=== PATIENT | female | born 1990 | race Caucasian/White ===

== ENCOUNTER 2018-07-31 17:38 | Inpatient (IN) | payer OTHER ==
[2018-07-31] MEDS ORDERED: NACL 0.9% 3 ML SYG IV (18:30)
[2018-07-31] MEDS: ONDANSETRON 4 MG INJ IV (19:41)
[2018-07-31] MEDS: SOD CHLORIDE 0.9% 1,000 ML IV (19:41)
[2018-07-31] MEDS: morphine 2 MG INJ IV (19:41)
[2018-07-31] MEDS: CEFEPIME 1GM/50 ML (PMX) 50 ML IV (20:21)
[2018-07-31] MEDS: ACETAMINOPHEN 325 MG TAB PO (20:48)
[2018-07-31] MEDS ORDERED: AL HYDROX/MG HYDROX/SIMETH 30 ML CUP PO (22:00)
[2018-07-31] MEDS: HYDROCODONE/APAP (5/325) TAB PO (22:33)
[2018-07-31 22:46] LABS: ADD UMIC YES; UR ASCORBIC ACID NEGATIVE (NEGATIVE); UR BACTERIA FEW /HPF (NONE SEEN); UR BILIRUBIN (Dip) NEGATIVE (NEGATIVE); UR BLOOD (Dip) 3+ mg/dL (NEGATIVE); UR CLARITY CLEAR (CLEAR); UR COLOR YELLOW (YELLOW); UR GLUCOSE (Dip) NEGATIVE (NEGATIVE); UR KETONES (Dip) NEGATIVE (NEGATIVE); UR LEUKOCYTE ESTERASE (Dip) TRACE Leu/ul (NEGATIVE); UR NITRITE (Dip) NEGATIVE (NEGATIVE); UR RBC 42 /HPF (0-5); UR SPECIFIC GRAVITY (Dip) 1.006 (1.003-1.030); UR SQUAMOUS EPITHELIAL CELL FEW /HPF (FEW); UR TOTAL PROTEIN (Dip) NEGATIVE (NEGATIVE); UR UROBILINOGEN (Dip) NEGATIVE (NEGATIVE); UR WBC 12 /HPF (0-5)
[2018-07-31 23:00] LABS: TROPONIN-I < 0.012 ng/ml (0.000-0.120)
[2018-08-01] MEDS: morphine 2 MG INJ IV ×2 (00:20→06:57)
[2018-08-01 05:11] LABS: WHITE BLOOD COUNT 13.7 10^3/ul (4.8-10.8)
[2018-08-01 05:11] LABS: HEMOGLOBIN 11.3 g/dl (12.0-16.0); MEAN CORPUSCULAR HEMOGLOBIN 32.8 pg (29.0-33.0); MEAN CORPUSCULAR HGB CONC 33.2 g/dl (32.0-37.0); MEAN CORPUSCULAR VOLUME 98.6 fl (82.0-101.0); MEAN PLATELET VOLUME 9.9 fl (7.4-10.4); PLATELET COUNT 130 10^3/UL (140-415); RED BLOOD COUNT 3.45 10^6/ul (4.20-5.40)
[2018-08-01 05:12] LABS: POSITIVE DIFF @See below
[2018-08-01 05:13] LABS: ADD MAN DIFF? YES
[2018-08-01 05:52] LABS: ALANINE AMINOTRANSFERASE 20 IU/L (13-69); ALBUMIN 2.6 g/dl (3.3-4.9); ALBUMIN/GLOBULIN RATIO 1.23; ALKALINE PHOSPHATASE 54 IU/L (42-121); ANION GAP 6 (5-13); ASPARTATE AMINO TRANSFERASE 16 IU/L (15-46); BILIRUBIN,INDIRECT 0.3 mg/dl (0-1.1); BILIRUBIN,TOTAL 0.3 mg/dl (0.2-1.3); BLOOD UREA NITROGEN 5 mg/dl (7-20); CALCIUM 7.7 mg/dl (8.4-10.2); CARBON DIOXIDE 25 mmol/L (21-31); CHLORIDE 109 mmol/L (97-110); CREATININE 0.73 mg/dl (0.44-1.00); Estimated GFR > 60 mL/min (>60); GLUCOSE 92 mg/dl (70-220); MAGNESIUM 1.6 mg/dl (1.7-2.5); POTASSIUM 3.9 mmol/L (3.5-5.1); SODIUM 140 mmol/L (135-144); TOTAL PROTEIN 4.7 g/dl (6.1-8.1)
[2018-08-01 05:53] LABS: TROPONIN-I < 0.012 ng/ml (0.000-0.120)
[2018-08-01] MEDS: ACETAMINOPHEN 325 MG TAB PO (06:41)
[2018-08-01] MEDS: ONDANSETRON 4 MG INJ IV ×2 (06:57→17:57)
[2018-08-01] MEDS ORDERED: VANCOMYCIN IV PER PHARMACY XX (08:30)
[2018-08-01 08:49] LABS: BAND NEUTROPHILS % (M) 8 % (0-4); EOSINOPHILS % (M) 2 % (0-7); LYMPHOCYTES #M 1.3 10^3/ul (0.8-2.9); LYMPHOCYTES % (M) 10 % (15-51); MONOCYTE #M 0.6 10^3/ul (0.3-0.9); MONOCYTES % (M) 5 % (0-11); PLATELET ESTIMATE DECREASED; PLATELET MORPHOLOGY COMMENT @See below; SEG NEUT #M 10.4 10^3/ul (1.6-7.5); SEGMENTED NEUTROPHILS (M) % 75 % (39-77); SMUDGE%M 5 % (0-0)
[2018-08-01] MEDS: CEFEPIME 1GM/50 ML (PMX) 50 ML IV ×2 (08:58→20:35)
[2018-08-01] MEDS: KETOROLAC 30 MG INJ IV (08:58)
[2018-08-01] MEDS: SOD CHLORIDE 0.9% 1,000 ML IV (09:03)
[2018-08-01] MEDS: ENOXAPARIN 40 MG/0.4 ML SYG SC (09:13)
[2018-08-01] MEDS: VANCOMYCIN 1.25 GM in SOD CHLORIDE 0.9% 250 ML IVPB (10:27)
[2018-08-01] MEDS: DOCUSATE SODIUM 100 MG CAP PO (10:27)
[2018-08-01] MEDS: MAGNESIUM HYDROXIDE 30ML CUP PO (10:27)
[2018-08-01] MEDS: HYDROCODONE/APAP (5/325) TAB PO ×2 (11:14→21:01)
[2018-08-01] MEDS: MAGNESIUM SULFATE 2 GM/50 ML 50 ML IVPB (14:21)
[2018-08-01] MEDS: morphine LIQ (10 MG/5 ML) CUP PO ×2 (17:42→23:41)
[2018-08-01] MEDS ORDERED: VANCOMYCIN 750 MG in SOD CHLORIDE 0.9% 150 ML IVPB (18:00)
[2018-08-02] MEDS: ACETAMINOPHEN 325 MG TAB PO (02:00)
[2018-08-02] MEDS: HYDROCODONE/APAP (5/325) TAB PO ×2 (04:05→10:01)
[2018-08-02] MEDS: SOD CHLORIDE 0.9% 1,000 ML IV ×3 (04:06→19:34)
[2018-08-02 07:39] LABS: ADD MAN DIFF? NO
[2018-08-02 07:42] LABS: BASOPHILS % 0.2 % (0.0-2.0); EOSINOPHILS # 0.2 10^3/ul (0.0-0.5); EOSINOPHILS % 1.8 % (0.0-7.0); HEMATOCRIT 30.9 % (37.0-47.0); HEMOGLOBIN 10.2 g/dl (12.0-16.0); LYMPHOCYTES # 1.9 10^3/ul (0.8-2.9); LYMPHOCYTES % 19.3 % (15.0-51.0); MEAN CORPUSCULAR HEMOGLOBIN 32.3 pg (29.0-33.0); MEAN CORPUSCULAR VOLUME 97.8 fl (82.0-101.0); MEAN PLATELET VOLUME 10.1 fl (7.4-10.4); MONOCYTE # 1.1 10^3/ul (0.3-0.9); MONOCYTES % 10.9 % (0.0-11.0); NEUTROPHIL # 6.5 10^3/ul (1.6-7.5); NEUTROPHILS % 67.4 % (39.0-77.0); PLATELET COUNT 136 10^3/UL (140-415); RED BLOOD COUNT 3.16 10^6/ul (4.20-5.40); RED CELL DISTRIBUTION WIDTH 12.1 % (11.5-14.5)
[2018-08-02 07:42] LABS: WHITE BLOOD COUNT 9.6 10^3/ul (4.8-10.8)
[2018-08-02 08:03] LABS: MAGNESIUM 2.1 mg/dl (1.7-2.5)
[2018-08-02 08:15] LABS: ANION GAP 5 (5-13); BLOOD UREA NITROGEN 4 mg/dl (7-20); CALCIUM 7.9 mg/dl (8.4-10.2); CARBON DIOXIDE 26 mmol/L (21-31); CHLORIDE 107 mmol/L (97-110); CREATININE 0.67 mg/dl (0.44-1.00); GLUCOSE 109 mg/dl (70-220); POTASSIUM 3.5 mmol/L (3.5-5.1); SODIUM 138 mmol/L (135-144)
[2018-08-02 08:16] LABS: ALBUMIN 2.6 g/dl (3.3-4.9); PHOSPHORUS 2.9 mg/dl (2.5-4.9)
[2018-08-02] MEDS: CEFEPIME 1GM/50 ML (PMX) 50 ML IV (09:07)
[2018-08-02] MEDS: ENOXAPARIN 40 MG/0.4 ML SYG SC (09:08)
[2018-08-02] MEDS: morphine LIQ (10 MG/5 ML) CUP PO (12:55)
[2018-08-02] MEDS: METHOCARBAMOL 500 MG TAB PO ×3 (13:00→20:37)
[2018-08-02] MEDS: ONDANSETRON 4 MG INJ IV (13:19)
[2018-08-02] MEDS: LEVOFLOXACIN 750MG/D5W (PMX) 150 ML IVPB (14:22)
[2018-08-02] MEDS: KETOROLAC 30 MG INJ IV (19:34)
[2018-08-03] MEDS: HYDROCODONE/APAP (5/325) TAB PO ×4 (01:14→23:47)
[2018-08-03] MEDS: METHOCARBAMOL 500 MG TAB PO ×3 (08:31→20:58)
[2018-08-03] MEDS: ENOXAPARIN 40 MG/0.4 ML SYG SC (08:40)
[2018-08-03 10:18] LABS: ADD MAN DIFF? NO
[2018-08-03 10:21] LABS: BASOPHILS % 0.2 % (0.0-2.0); EOSINOPHILS # 0.1 10^3/ul (0.0-0.5); EOSINOPHILS % 1.8 % (0.0-7.0); HEMATOCRIT 32.7 % (37.0-47.0); HEMOGLOBIN 10.9 g/dl (12.0-16.0); LYMPHOCYTES # 1.2 10^3/ul (0.8-2.9); LYMPHOCYTES % 17.6 % (15.0-51.0); MEAN CORPUSCULAR HGB CONC 33.3 g/dl (32.0-37.0); MEAN CORPUSCULAR VOLUME 95.9 fl (82.0-101.0); MEAN PLATELET VOLUME 9.3 fl (7.4-10.4); MONOCYTE # 0.7 10^3/ul (0.3-0.9); MONOCYTES % 10.9 % (0.0-11.0); NEUTROPHIL # 4.6 10^3/ul (1.6-7.5); NEUTROPHILS % 69.2 % (39.0-77.0); PLATELET COUNT 163 10^3/UL (140-415); RED BLOOD COUNT 3.41 10^6/ul (4.20-5.40); RED CELL DISTRIBUTION WIDTH 12.2 % (11.5-14.5)
[2018-08-03 10:21] LABS: WHITE BLOOD COUNT 6.6 10^3/ul (4.8-10.8)
[2018-08-03 10:40] LABS: ANION GAP 8 (5-13); BLOOD UREA NITROGEN 2 mg/dl (7-20); CALCIUM 8.2 mg/dl (8.4-10.2); CARBON DIOXIDE 25 mmol/L (21-31); CHLORIDE 104 mmol/L (97-110); CREATININE 0.57 mg/dl (0.44-1.00); Estimated GFR > 60 mL/min (>60); GLUCOSE 105 mg/dl (70-220); MAGNESIUM 1.7 mg/dl (1.7-2.5); PHOSPHORUS 3.2 mg/dl (2.5-4.9); POTASSIUM 3.3 mmol/L (3.5-5.1); SODIUM 137 mmol/L (135-144)
[2018-08-03] MEDS: SOD CHLORIDE 0.9% 1,000 ML IV ×2 (13:18→23:53)
[2018-08-03] MEDS: POTASSIUM CHLORIDE 20 MEQ POWDER FOR ORAL SOLN PO (13:18)
[2018-08-03] MEDS: LEVOFLOXACIN 750MG/D5W (PMX) 150 ML IVPB (13:18)
[2018-08-03] MEDS: KETOROLAC 15 MG INJ IV (18:02)
[2018-08-04] MEDS: SOD CHLORIDE 0.9% 1,000 ML IV (02:19)
[2018-08-04 07:56] LABS: ADD MAN DIFF? NO
[2018-08-04 07:58] LABS: WHITE BLOOD COUNT 7.6 10^3/ul (4.8-10.8)
[2018-08-04 07:58] LABS: BASOPHILS % 0.4 % (0.0-2.0); EOSINOPHILS # 0.2 10^3/ul (0.0-0.5); HEMATOCRIT 33.8 % (37.0-47.0); HEMOGLOBIN 11.4 g/dl (12.0-16.0); LYMPHOCYTES # 1.8 10^3/ul (0.8-2.9); LYMPHOCYTES % 23.9 % (15.0-51.0); MEAN CORPUSCULAR HEMOGLOBIN 32.3 pg (29.0-33.0); MEAN CORPUSCULAR HGB CONC 33.7 g/dl (32.0-37.0); MEAN CORPUSCULAR VOLUME 95.8 fl (82.0-101.0); MEAN PLATELET VOLUME 9.3 fl (7.4-10.4); MONOCYTE # 0.9 10^3/ul (0.3-0.9); NEUTROPHIL # 4.6 10^3/ul (1.6-7.5); NEUTROPHILS % 61.3 % (39.0-77.0); PLATELET COUNT 211 10^3/UL (140-415); RED BLOOD COUNT 3.53 10^6/ul (4.20-5.40); RED CELL DISTRIBUTION WIDTH 12.2 % (11.5-14.5)
[2018-08-04 08:23] LABS: ANION GAP 10 (5-13); BLOOD UREA NITROGEN 4 mg/dl (7-20); CALCIUM 8.5 mg/dl (8.4-10.2); CARBON DIOXIDE 26 mmol/L (21-31); CHLORIDE 104 mmol/L (97-110); CREATININE 0.64 mg/dl (0.44-1.00); Estimated GFR > 60 mL/min (>60); GLUCOSE 87 mg/dl (70-220); MAGNESIUM 1.8 mg/dl (1.7-2.5); SODIUM 140 mmol/L (135-144)
[2018-08-04] MEDS: METHOCARBAMOL 500 MG TAB PO ×3 (09:00→20:10)
[2018-08-04] MEDS: ENOXAPARIN 40 MG/0.4 ML SYG SC (09:12)
[2018-08-04] MEDS: HYDROCODONE/APAP (5/325) TAB PO (11:29)
[2018-08-04] MEDS: LEVOFLOXACIN 750MG/D5W (PMX) 150 ML IVPB (12:51)
[2018-08-05] MEDS: HYDROCODONE/APAP (5/325) TAB PO (00:18)
[2018-08-05 05:21] LABS: ADD MAN DIFF? NO
[2018-08-05 05:26] LABS: WHITE BLOOD COUNT 6.9 10^3/ul (4.8-10.8)
[2018-08-05 05:26] LABS: BASOPHILS % 0.6 % (0.0-2.0); EOSINOPHILS # 0.1 10^3/ul (0.0-0.5); EOSINOPHILS % 1.9 % (0.0-7.0); HEMATOCRIT 35.5 % (37.0-47.0); HEMOGLOBIN 11.9 g/dl (12.0-16.0); LYMPHOCYTES # 2.3 10^3/ul (0.8-2.9); LYMPHOCYTES % 33.3 % (15.0-51.0); MEAN CORPUSCULAR HEMOGLOBIN 32.2 pg (29.0-33.0); MEAN CORPUSCULAR HGB CONC 33.5 g/dl (32.0-37.0); MEAN CORPUSCULAR VOLUME 95.9 fl (82.0-101.0); MEAN PLATELET VOLUME 9.1 fl (7.4-10.4); MONOCYTE # 0.9 10^3/ul (0.3-0.9); MONOCYTES % 12.8 % (0.0-11.0); NEUTROPHIL # 3.5 10^3/ul (1.6-7.5); NEUTROPHILS % 50.8 % (39.0-77.0); PLATELET COUNT 257 10^3/UL (140-415); RED CELL DISTRIBUTION WIDTH 12.1 % (11.5-14.5)
[2018-08-05 05:52] LABS: ANION GAP 11 (5-13); BLOOD UREA NITROGEN 5 mg/dl (7-20); CALCIUM 8.8 mg/dl (8.4-10.2); CARBON DIOXIDE 26 mmol/L (21-31); CHLORIDE 104 mmol/L (97-110); Estimated GFR > 60 mL/min (>60); GLUCOSE 86 mg/dl (70-220); MAGNESIUM 1.9 mg/dl (1.7-2.5); PHOSPHORUS 4.7 mg/dl (2.5-4.9); POTASSIUM 3.9 mmol/L (3.5-5.1); SODIUM 141 mmol/L (135-144)
[2018-08-05] MEDS: METHOCARBAMOL 500 MG TAB PO ×2 (09:43→12:43)
[2018-08-05] MEDS: ENOXAPARIN 40 MG/0.4 ML SYG SC (09:45)
[2018-08-05] MEDS: LEVOFLOXACIN 750MG/D5W (PMX) 150 ML IVPB (13:25)
== END 2018-08-05 15:40 | disposition home or self-care (01) | DRG 872 ==
LOC: 2NE 17:38
DX: A41.9 Sepsis, unspecified organism (principal); N39.0 Urinary tract infection, site not specified; Z87.440 Personal history of urinary (tract) infections; M79.606 Pain in leg, unspecified
CPT/HCPCS: 80048; 80053; 80069; 81001; 83605; 83735; 84100; 84484; 85025; 87040; 87086; 93005

== ENCOUNTER 2018-08-28 15:25 | Emergency (ER) | payer OTHER ==
[2018-08-28 16:25] LABS: ADD MAN DIFF? NO
[2018-08-28 16:31] LABS: BASOPHILS % 0.5 % (0.0-2.0); EOSINOPHILS % 0.5 % (0.0-7.0); HEMATOCRIT 38.7 % (37.0-47.0); HEMOGLOBIN 13.4 g/dl (12.0-16.0); LYMPHOCYTES # 1.1 10^3/ul (0.8-2.9); LYMPHOCYTES % 13.6 % (15.0-51.0); MEAN CORPUSCULAR HEMOGLOBIN 32.1 pg (29.0-33.0); MEAN CORPUSCULAR HGB CONC 34.6 g/dl (32.0-37.0); MEAN CORPUSCULAR VOLUME 92.6 fl (82.0-101.0); MEAN PLATELET VOLUME 9.7 fl (7.4-10.4); MONOCYTE # 0.8 10^3/ul (0.3-0.9); MONOCYTES % 10.2 % (0.0-11.0); NEUTROPHILS % 74.7 % (39.0-77.0); PLATELET COUNT 169 10^3/UL (140-415); RED BLOOD COUNT 4.18 10^6/ul (4.20-5.40); RED CELL DISTRIBUTION WIDTH 12.3 % (11.5-14.5)
[2018-08-28 16:34] LABS: ADD UMIC NO; UR ASCORBIC ACID NEGATIVE (NEGATIVE); UR BILIRUBIN (Dip) NEGATIVE (NEGATIVE); UR BLOOD (Dip) NEGATIVE (NEGATIVE); UR CLARITY CLEAR (CLEAR); UR COLOR YELLOW (YELLOW); UR GLUCOSE (Dip) NEGATIVE (NEGATIVE); UR KETONES (Dip) TRACE mg/dL (NEGATIVE); UR LEUKOCYTE ESTERASE (Dip) NEGATIVE Leu/ul (NEGATIVE); UR NITRITE (Dip) NEGATIVE (NEGATIVE); UR TOTAL PROTEIN (Dip) NEGATIVE (NEGATIVE); UR UROBILINOGEN (Dip) NEGATIVE (NEGATIVE)
[2018-08-28] MEDS: morphine 4 MG/ML VIAL IV (16:43)
[2018-08-28] MEDS: ONDANSETRON 4 MG INJ IV (16:43)
[2018-08-28] MEDS: CEFTRIAXONE 1 GM/50 ML (PMX) 50 ML IVPB (16:44)
[2018-08-28] MEDS: SODIUM CHLORIDE 0.9% 1L BAG IV* (16:44)
[2018-08-28 16:50] LABS: INR 1.02; PROTIME 13.5 Sec (11.9-14.9); PT RATIO 1.1
[2018-08-28 16:51] LABS: ANION GAP 10 (5-13); BLOOD UREA NITROGEN 9 mg/dl (7-20); CALCIUM 9.4 mg/dl (8.4-10.2); CARBON DIOXIDE 26 mmol/L (21-31); CHLORIDE 95 mmol/L (97-110); CREATININE 0.68 mg/dl (0.44-1.00); Estimated GFR > 60 mL/min (>60); GLUCOSE 114 mg/dl (70-220); PARTIAL THROMBOPLASTIN TIME 32.9 Sec (23.0-35.0); POTASSIUM 3.7 mmol/L (3.5-5.1); SODIUM 131 mmol/L (135-144)
[2018-08-28 17:03] LABS: TROPONIN-I < 0.012 ng/ml (0.000-0.120)
[2018-08-28] MEDS: IBUPROFEN 800 MG TAB PO ×2 (17:09→17:44)
[2018-08-28] MEDS: AMOXICILLIN 500 MG CAP PO (17:46)
== END 2018-08-28 18:30 | disposition home or self-care (01) ==
LOC: E/R 15:25
DX: J02.9 Acute pharyngitis, unspecified (principal); R10.84 Generalized abdominal pain; R40.2142 Coma scale, eyes open, spontaneous, at arrival to emergency department; R40.2362 Coma scale, best motor response, obeys commands, at arrival to emergency department; Z87.891 Personal history of nicotine dependence
CPT/HCPCS: 36415; 71045; 80048; 81003; 84484; 84703; 85025; 85610; 85730; 87040; 87045; 87086; 87400; 93005; 96374; 96375; 99285-25